=== PATIENT | male | born 1970 | race African-American/Black ===

== ENCOUNTER 2018-05-27 11:20 | Inpatient (IN) | payer OTHER ==
[2018-05-27 11:38] VITALS: BMI 24.3
--- NOTE | 2018-05-27 14:13 | HP ---
COWS - Scale Resting Pulse: 0= [place] 80 or Below Sweatin= Chills/Flushing Restless Observation: 1= Difficult to Sit Still Pupil Size: 1= Pupils >than Normal Bone or Joint Aches: 2= Severe Diffuse Aches Runny Nose/ Eye Tearin= Runny Nose/Eyes GI Upset > 30mins: 3= Vomiting/Diarrhea Tremor Observation: 1= Tremor [place], Not Seen Yawning Observation: 1= 1-2x During Session Anxiety or Irritability: 2=Irritable/Anxious Goose Flesh Skin: 0=Smooth Skin COWS Score: 14 Admission ROS S - HPI Chief Complaint: i need help to stop using heroin,cocaine Allergies/Adverse Reactions: Allergies Allergy/AdvReac Type Severity Reaction Status Date / Time No Known Drug Allergies Allergy Unknown Verified 05/27/18 14:25 lactose AdvReac Severe diarrhea Verified 05/27/18 14:28 NKDA Allergy Uncoded 05/27/18 13:58 lactose AdvReac Severe diarrhea Uncoded 05/27/18 13:58 History of Present Illness: this 48 years old male with heroin and cocaine dependence seeking detox, withdrawal symptom,last detox 12/01 in [place] nicotine dependence history of umbilical hernia at age 1 years anxiety,depression,insomnia weight loss longeat period of sobriety Exam Limitations: No Limitations - Ebola screening Have you traveled outside of the country in the last 21 days: No (N) Have you had contact with anyone from an Ebola affected area: No Have you been sick,other than usual withdrawal symptoms: No Do you have a fever: No - Review of Systems Constitutional: Loss of Appetite, Malaise, Night Sweats, Changes in sleep, Weakness, Unintentional Wgt. Loss EENT: reports: Nose Congestion Respiratory: reports: No Symptoms reported Cardiac: reports: No Symptoms Reported GI: reports: Diarrhea, Nausea, Abdominal cramping : reports: No Symptoms Reported Musculoskeletal: reports: Back Pain, Muscle Pain Integumentary: reports: Dryness, Other (abrasion of left middle finger) Neuro: reports: Headache, Tremors Endocrine: reports: No Symptoms Reported Hematology: reports: No Symptoms Reported Psychiatric: reports: Judgement Intact, Mood/Affect Appropiate, Orientated x3, Agitated (insomnia), Depressed Patient History - Patient Medical History Hx Anemia: No Hx Asthma: No Hx Chronic Obstructive Pulmonary Disease (COPD): No Hx Cancer: No Hx Cardiac Disorders: No Hx Congestive Heart Failure: No Hx Hypertension: No Hx Hypercholesterolemia: No Hx Pacemaker: No HX Cerebrovascular Accident: No Hx Seizures: No Hx Dementia: No Hx Diabetes: No Hx Gastrointestinal Disorders: No Hx Liver Disease: No Hx Genitourinary Disorders: No Hx Sexually Transmitted Disorders: No Hx Renal Disease (ESRD): No Hx Thyroid Disease: No Hx Human Immunodeficiency Virus (HIV): No (01/01 negative) Hx Hepatitis C: No Hx Depression: No Hx Suicide Attempt: No Hx Bipolar Disorder: No Hx Schizophrenia: No Other Medical History: no suicidal,no homicidal,abrasion of right hand - Patient Surgical History Past Surgical History: Yes Hx Abdominal Surgery: Yes (umbilical hernia at age of 1) - PPD History Previous Implant?: Yes Documented Results: Negative w/o proof Implanted On Prior [facility] Admission?: No PPD to be Administered?: Yes - Smoking Cessation Smoking history: Current every day smoker Have you smoked in the past 12 months: Yes Aproximately how many cigarettes per day: 10 Hx Chewing Tobacco Use: No Initiated information on smoking cessation: Yes 'Breaking Loose' booklet given: 05/27/18 - Substances Abused Heroin Route: Inhalation Frequency: Daily Amount used: 10 bags Age of first use: 40 Date of Last Use: 05/26/18 Cocaine Route: Inhalation Frequency: 3-6 times per week Amount used: $100 Age of first use: 25 Date of Last Use: 05/26/18 Suboxone Route: SL Frequency: 1-3 times last 30 days Amount used: 1 film (8-2 mg.) Age of first use: 47 Date of Last Use: 05/20/18 Family Disease History - Family Disease History Family History: Denies Admission Physical Exam [facility] - Vital Signs Vital Signs: Vital Signs - 24 hr 05/27/18 11:35 Temperature 98.2 F Pulse Rate 78 Respiratory 20 Rate Blood Pressure 119/75 - Physical General Appearance: Yes: Moderate Distress, Tremorous, Irritable, Sweating, Anxious HEENTM: Yes: Normal ENT Inspection, FERNIE, Pharynx Normal Respiratory: Yes: Within Normal Limits, Lungs Clear, Normal Breath Sounds Neck: Yes: Within Normal Limits, Supple, Trachea in good position Breast: Yes: Within Normal Limits Cardiology: Yes: Within Normal Limits, Regular Rhythm, Regular Rate, S1, S2 Abdominal: Yes: Within Normal Limits, Normal Bowel Sounds, Non Tender, Soft Genitourinary: Yes: Within Normal Limits Back: Yes: Muscle Spasm Musculoskeletal: Yes: Back pain, Muscle Pain Extremities: Yes: Within Normal Limits, Normal Range of Motion, Tremors Neurological: Yes: Within Normal Limits, compensation director II-XII NML intact, Fully Oriented, Alert, Motor Strength 5/5 Integumentary: Yes: Dry Lymphatic: Yes: Within Normal Limits - Diagnostic (1) Opioid dependence with withdrawal Current Visit: Yes Status: Acute (2) Cannabis dependence Current Visit: Yes Status: Chronic (3) Nicotine dependence Current Visit: Yes Status: Chronic (4) Anxiety and depression Current Visit: Yes Status: Acute (5) Insomnia Current Visit: Yes Status: Acute Cleared for Admission [facility] - Detox or Rehab [facility] Level of Care: Medically Managed Detox Regimen/Protocol: Methadone/Librium [facility] Breath Alcohol Content Breath Alcohol Content: 0 Urine Drug Screen - Results Drug Screen Negative: No Urine Drug Screen Results: THC-Marijuana, CARLY-Cocaine, OPI-Opiates, BUP-Suboxone
[2018-05-27] MEDS ORDERED: MAGNESIUM HYDROX 2400MG/30ML ORAL SUSPENSION 30 ML CUP PO PRN (14:30)
[2018-05-27] MEDS ORDERED: LOPERAMIDE HCL 2 MG CAPSULE PO PRN (14:30)
[2018-05-27] MEDS ORDERED: MENTHOL/PHENOL 1 EACH UD MM PRN (14:30)
[2018-05-27] MEDS ORDERED: ACETAMINOPHEN 325 MG TABLET (FP) PO PRN (14:30)
[2018-05-27] MEDS ORDERED: MAGNESIUM CITRATE 300 ML BOTTLE PO PRN (14:30)
[2018-05-27] MEDS ORDERED: IBUPROFEN 400 MG TABLET (FP) PO PRN (14:30)
[2018-05-27] MEDS ORDERED: MAG HYDROX/AL HYDROX/SIMETH 30 ML UNIT-DOSE CUP PO PRN (14:30)
[2018-05-27] MEDS ORDERED: METHADONE HCL 10 MG TABLET (FOR DETOX USE ONLY) PO ONE ×2 (15:00→23:00)
[2018-05-27] MEDS: P-EPHED 60MG/TRIPROLIDI 2.5MG TABLET PO PRN (15:31)
[2018-05-27] MEDS: diazePAM 5 MG TABLET PO PRN ×2 (15:38→22:06)
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
[2018-05-27 18:16] LABS: URINE APPEARANCE CLEAR; URINE BILIRUBIN NEGATIVE (<2.0 mg/dL); URINE COLOR AMBER; URINE GLUCOSE (UA) NEGATIVE (NEGATIVE); URINE KETONE 1+ (NEGATIVE); URINE LEUK ESTERASE NEGATIVE (NEGATIVE); URINE NITRITE NEGATIVE (NEGATIVE); URINE PROTEIN 1+ (NEGATIVE); URINE UROBILINOGEN 4.0 E.U/dl mg/dL (0.2-1.0)
[2018-05-27 18:37] LABS: CALCIUM OXALATE CRYSTALS FEW /hpf (NONE SEEN); EPI CELLS RARE /HPF (FEW); URINE MUCUS MANY
[2018-05-27] MEDS: guaiFENesin/D-METHORPHAN HB 10 ML UNIT-DOSE CUPS PO PRN (19:11)
[2018-05-27] MEDS ORDERED: MELATONIN 5 MG TABLETS PO PRN (22:00)
[2018-05-27] MEDS: THIAMINE HCL 100 MG TABLET (FP) PO SCH (22:06)
[2018-05-27] MEDS: QUEtiapine FUMARATE 50 MG TABLET PO SCH (22:06)
[2018-05-28] MEDS: guaiFENesin/D-METHORPHAN HB 10 ML UNIT-DOSE CUPS PO PRN ×2 (03:40→12:25)
[2018-05-28] MEDS ORDERED: METHADONE HCL 10 MG TABLET (FOR DETOX USE ONLY) PO ONE (10:00)
[2018-05-28 10:06] LABS: HEMATOCRIT 36.6 % (35.4-49); HEMOGLOBIN 12.2 GM/dL (11.7-16.9); MCH 28.8 pg (25.7-33.7); MCHC 33.2 g/dl (32.0-35.9); MEAN CELL VOLUME 86.7 fl (80-96); MEAN PLT VOLUME 10.6 fl (7.5-11.1); PLATELET COUNT 253 K/MM3 (134-434); RBC 4.23 M/mm3 (4.00-5.60); RDW 13.4 % (11.9-15.9); WHITE BLOOD COUNT 16.7 K/mm3 (4.0-10.0)
[2018-05-28 10:25] LABS: ALBUMIN 3.2 g/dl (3.4-5.0); ALK PHOS 76 U/L (45-117); ANION GAP 5 MMOL/L (8-16); BILIRUBIN,TOTAL 0.8 mg/dL (0.2-1); BLOOD UREA NITROGEN 11 mg/dL (7-18); CALCIUM 8.8 mg/dL (8.5-10.1); CHLORIDE 107 mmol/L (98-107); CO2 28 mmol/L (21-32); CREATININE 0.8 mg/dL (0.55-1.3); GLUCOSE,RANDOM 108 mg/dL (74-106); POTASSIUM 4.2 mmol/L (3.5-5.1); SGOT/AST 17 U/L (15-37); SGPT/ALT 23 U/L (13-61); SODIUM 140 mmol/L (136-145)
[2018-05-28] MEDS: PRENATAL VITAMINS W/ FOLIC ACID TABLET (FP) PO SCH (10:47)
[2018-05-28] MEDS: diazePAM 5 MG TABLET PO PRN ×3 (10:47→22:17)
[2018-05-28] MEDS: P-EPHED 60MG/TRIPROLIDI 2.5MG TABLET PO PRN ×2 (10:49→17:16)
[2018-05-28] MEDS ORDERED: FLU VACCINE QUAD 60 MCG/0.5 ML (MDV 18-19) IM ONE (12:00)
--- NOTE | 2018-05-28 12:04 | PN ---
[facility] COWS - Scale Resting Pulse: 0= [place] 80 or Below Sweatin= Chills/Flushing Restless Observation: 3= Extraneous Movement Pupil Size: 1= Pupils >than Normal Bone or Joint Aches: 2= Severe Diffuse Aches Runny Nose/ Eye Tearin= Runny Nose/Eyes GI Upset > 30mins: 2= Nausea/Diarrhea Tremor Observation of Outstretched Hands: 2= Slight Tremor Visible Yawning Observation: 1= 1-2x During Session Anxiety or Irritability: 2=Irritable/Anxious Goose Flesh Skin: 0=Smooth Skin COWS Score: 16 [facility] Progress Note (SOAP) Subjective: Sweating, chills, body aches, legs hurting, interrupted sleep. Patient c/o sore throat x 1 week and brownish phlegm with cough. Patient didn't report sxs to functional tester typewriters but told RN. Objective: 05/28/18 12:00 Last Vital Signs Temp Pulse Resp BP Pulse Ox 96.7 F L 74 18 117/70 05/28/18 10:28 05/28/18 10:28 05/28/18 10:28 05/28/18 10:28 Laboratory Tests 05/27/18 05/28/18 05/28/18 15:45 06:00 06:00 WBC 16.7 H RBC 4.23 Hgb 12.2 Hct 36.6 MCV 86.7 MCH 28.8 MCHC 33.2 RDW 13.4 Plt Count 253 MPV 10.6 Sodium 140 Potassium 4.2 Chloride 107 Carbon Dioxide 28 Anion Gap 5 L BUN 11 Creatinine 0.8 Creat Clearance w eGFR > 60 Random Glucose 108 H Calcium 8.8 Total Bilirubin 0.8 AST 17 ALT 23 Alkaline Phosphatase 76 Total Protein 7.0 Albumin 3.2 L Urine Color Pauline Urine Appearance Clear Urine pH 5.0 Ur Specific [place] 1.029 Urine Protein 1+ H Urine Glucose (UA) Negative Urine Ketones 1+ H Urine Blood Negative Urine Nitrite Negative Urine Bilirubin Negative Urine Urobilinogen 4.0 e.u/dl Ur Leukocyte Esterase Negative Urine WBC (Auto) 4 Urine RBC (Auto) 5 Ur Epithelial Cells Rare Calcium Oxalate Crystal Few Urine Mucus Many RPR Titer 05/28/18 06:00 WBC RBC Hgb Hct MCV MCH MCHC RDW Plt Count MPV Sodium Potassium Chloride Carbon Dioxide Anion Gap BUN Creatinine Creat Clearance w eGFR Random Glucose Calcium Total Bilirubin AST ALT Alkaline Phosphatase Total Protein Albumin Urine Color Urine Appearance Urine pH Ur Specific [place] Urine Protein Urine Glucose (UA) Urine Ketones Urine Blood Urine Nitrite Urine Bilirubin Urine Urobilinogen Ur Leukocyte Esterase Urine WBC (Auto) Urine RBC (Auto) Ur Epithelial Cells Calcium Oxalate Crystal Urine Mucus RPR Titer Nonreactive Labs reviewed: noted with leukocytosis and abnormal UA Assessment: 05/28/18 12:04 Withdrawal sxs Noted with leukocytosis and abnormal UA Plan: Continue detox Leukocytosis: asymptomatic, most likely r/t bronchitis due to chronic nicotine dependence, start Z [place], encouraged PO hydration, continue tylenol prn and robitussin cough dm, repeat CBC. Consider chest xray if no improvement within 24 -48 hours. Abnormal UA: encouraged PO water intake, repeat UA
[2018-05-28] MEDS ORDERED: AZITHROMYCIN 250 MG TABLET PO ONE (12:45)
[2018-05-28] MEDS: hydrOXYzine PAMOATE 25 MG CAPSULE (FP) PO PRN (17:14)
[2018-05-28] MEDS: QUEtiapine FUMARATE 50 MG TABLET PO SCH (22:17)
[2018-05-28] MEDS: THIAMINE HCL 100 MG TABLET (FP) PO SCH (22:17)
[2018-05-29] MEDS ORDERED: METHADONE HCL 5 MG TABLET (FOR DETOX USE ONLY) PO ONE (10:00)
[2018-05-29 10:59] LABS: BASO % 0.2 % (0-2.0); EOS % 3.6 % (0-4.5); HEMATOCRIT 34.3 % (35.4-49); HEMOGLOBIN 11.5 GM/dL (11.7-16.9); LYMPH % 27.2 % (8-40); MCH 29.4 pg (25.7-33.7); MCHC 33.6 g/dl (32.0-35.9); MEAN CELL VOLUME 87.6 fl (80-96); MEAN PLT VOLUME 10.3 fl (7.5-11.1); MONO % 7.1 % (3.8-10.2); NEUT % 61.9 % (42.8-82.8); PLATELET COUNT 238 K/MM3 (134-434); RBC 3.92 M/mm3 (4.00-5.60); RDW 13.2 % (11.9-15.9); WHITE BLOOD COUNT 10.5 K/mm3 (4.0-10.0)
[2018-05-29] MEDS: diazePAM 5 MG TABLET PO PRN ×3 (10:59→22:13)
[2018-05-29] MEDS: AZITHROMYCIN 250 MG TABLET PO SCH (10:59)
[2018-05-29] MEDS: P-EPHED 60MG/TRIPROLIDI 2.5MG TABLET PO PRN ×2 (11:01→18:13)
[2018-05-29] MEDS: PRENATAL VITAMINS W/ FOLIC ACID TABLET (FP) PO SCH (11:01)
[2018-05-29] MEDS ORDERED: CYCLOBENZAPRINE HCL 10 MG TABLET (FP) PO ONE (13:30)
[2018-05-29] MEDS ORDERED: cloNIDine HCL 0.1 MG TABLET PO ONE (13:30)
--- NOTE | 2018-05-29 15:03 | PN ---
[facility] COWS - Scale Resting Pulse: 1= [place] 81-100 Sweatin= Chills/Flushing Restless Observation: 1= Difficult to Sit Still Pupil Size: 1= Pupils >than Normal Bone or Joint Aches: 2= Severe Diffuse Aches Runny Nose/ Eye Tearin= Runny Nose/Eyes GI Upset > 30mins: 2= Nausea/Diarrhea Tremor Observation of Outstretched Hands: 2= Slight Tremor Visible Yawning Observation: 1= 1-2x During Session Anxiety or Irritability: 2=Irritable/Anxious Goose Flesh Skin: 0=Smooth Skin COWS Score: 15 S Progress Note (SOAP) Subjective: alert,irritable,anxious,interrupted sleep,pain in the body and back,tremor Objective: 05/29/18 15:01 Vital Signs Temperature 98.0 F 05/29/18 11:12 Pulse Rate 90 05/29/18 11:12 Respiratory Rate 16 05/29/18 11:12 Blood Pressure 125/78 05/29/18 11:12 O2 Sat by Pulse Oximetry (%) 05/29/18 15:02 Laboratory Last Values WBC 10.5 K/mm3 (4.0-10.0) H 05/29/18 08:00 RBC 3.92 M/mm3 (4.00-5.60) L 05/29/18 08:00 Hgb 11.5 GM/dL (11.7-16.9) L 05/29/18 08:00 Hct 34.3 % (35.4-49) L 05/29/18 08:00 MCV 87.6 fl (80-96) 05/29/18 08:00 MCH 29.4 pg (25.7-33.7) 05/29/18 08:00 MCHC 33.6 g/dl (32.0-35.9) 05/29/18 08:00 RDW 13.2 % (11.9-15.9) 05/29/18 08:00 Plt Count 238 K/MM3 (134-434) 05/29/18 08:00 MPV 10.3 fl (7.5-11.1) 05/29/18 08:00 Absolute Neuts (auto) 6.5 K/mm3 (1.5-8.0) 05/29/18 08:00 Neutrophils % 61.9 % (42.8-82.8) 05/29/18 08:00 Lymphocytes % 27.2 % (8-40) 05/29/18 08:00 Monocytes % 7.1 % (3.8-10.2) 05/29/18 08:00 Eosinophils % 3.6 % (0-4.5) 05/29/18 08:00 Basophils % 0.2 % (0-2.0) 05/29/18 08:00 Nucleated RBC % 0 % (0-0) 05/29/18 08:00 Sodium 140 mmol/L (136-145) 05/28/18 06:00 Potassium 4.2 mmol/L (3.5-5.1) 05/28/18 06:00 Chloride 107 mmol/L (98-107) 05/28/18 06:00 Carbon Dioxide 28 mmol/L (21-32) 05/28/18 06:00 Anion Gap 5 MMOL/L (8-16) L 05/28/18 06:00 BUN 11 mg/dL (7-18) 05/28/18 06:00 Creatinine 0.8 mg/dL (0.55-1.3) 05/28/18 06:00 Creat Clearance w eGFR > 60 (>60) 05/28/18 06:00 Random Glucose 108 mg/dL (74-106) H 05/28/18 06:00 Calcium 8.8 mg/dL (8.5-10.1) 05/28/18 06:00 Total Bilirubin 0.8 mg/dL (0.2-1) 05/28/18 06:00 AST 17 U/L (15-37) 05/28/18 06:00 ALT 23 U/L (13-61) 05/28/18 06:00 Alkaline Phosphatase 76 U/L (45-117) 05/28/18 06:00 Total Protein 7.0 g/dl (6.4-8.2) 05/28/18 06:00 Albumin 3.2 g/dl (3.4-5.0) L 05/28/18 06:00 Urine Color Paul[place] 05/27/18 15:45 Urine Appearance Clear 05/27/18 15:45 Urine pH 5.0 (5.0-8.0) 05/27/18 15:45 Ur Specific [place] 1.029 (1.010-1.035) 05/27/18 15:45 Urine Protein 1+ (NEGATIVE) H 05/27/18 15:45 Urine Glucose (UA) Negative (NEGATIVE) 05/27/18 15:45 Urine Ketones 1+ (NEGATIVE) H 05/27/18 15:45 Urine Blood Negative (NEGATIVE) 05/27/18 15:45 Urine Nitrite Negative (NEGATIVE) 05/27/18 15:45 Urine Bilirubin Negative (<2.0 mg/dL) 05/27/18 15:45 Urine Urobilinogen 4.0 e.u/dl mg/dL (0.2-1.0) 05/27/18 15:45 Ur Leukocyte Esterase Negative (NEGATIVE) 05/27/18 15:45 Urine WBC (Auto) 4 /hpf (3-5) 05/27/18 15:45 Urine RBC (Auto) 5 /hpf (0-3) 05/27/18 15:45 Ur Epithelial Cells Rare /HPF (FEW) 05/27/18 15:45 Calcium Oxalate Crystal Few /hpf (NONE SEEN) 05/27/18 15:45 Urine Mucus Many 05/27/18 15:45 RPR Titer Nonreactive (NONREACTIVE) 05/28/18 06:00 Assessment: 05/29/18 15:02 withdrawal symptom Plan: continue detox
[2018-05-29] MEDS: cloNIDine HCL 0.1 MG TABLET PO SCH (22:13)
[2018-05-29] MEDS: THIAMINE HCL 100 MG TABLET (FP) PO SCH (22:13)
[2018-05-29] MEDS: QUEtiapine FUMARATE 50 MG TABLET PO SCH (22:13)
[2018-05-29] MEDS: CYCLOBENZAPRINE HCL 10 MG TABLET (FP) PO PRN (22:13)
[2018-05-30] MEDS ORDERED: METHADONE HCL 5 MG TABLET (FOR DETOX USE ONLY) PO ONE (10:00)
[2018-05-30] MEDS: PRENATAL VITAMINS W/ FOLIC ACID TABLET (FP) PO SCH (10:08)
[2018-05-30] MEDS: cloNIDine HCL 0.1 MG TABLET PO SCH ×2 (10:08→22:07)
[2018-05-30] MEDS: AZITHROMYCIN 250 MG TABLET PO SCH (10:08)
[2018-05-30] MEDS: diazePAM 5 MG TABLET PO PRN ×2 (10:08→13:48)
--- NOTE | 2018-05-30 15:23 | PN ---
S Progress Note (SOAP) Subjective: Sweating, muscle ache, diarrhea x 2 Objective: 05/30/18 15:20 Last Vital Signs Temp Pulse Resp BP Pulse Ox 96.5 F L 94 H 18 102/71 05/30/18 14:08 05/30/18 14:08 05/30/18 14:08 05/30/18 14:08 Laboratory Tests 05/27/18 05/28/18 05/28/18 15:45 06:00 06:00 WBC 16.7 H RBC 4.23 Hgb 12.2 Hct 36.6 MCV 86.7 MCH 28.8 MCHC 33.2 RDW 13.4 Plt Count 253 MPV 10.6 Absolute Neuts (auto) Neutrophils % Lymphocytes % Monocytes % Eosinophils % Basophils % Nucleated RBC % Sodium 140 Potassium 4.2 Chloride 107 Carbon Dioxide 28 Anion Gap 5 L BUN 11 Creatinine 0.8 Creat Clearance w eGFR > 60 Random Glucose 108 H Calcium 8.8 Total Bilirubin 0.8 AST 17 ALT 23 Alkaline Phosphatase 76 Total Protein 7.0 Albumin 3.2 L Urine Color Pauline Urine Appearance Clear Urine pH 5.0 Ur Specific [place] 1.029 Urine Protein 1+ H Urine Glucose (UA) Negative Urine Ketones 1+ H Urine Blood Negative Urine Nitrite Negative Urine Bilirubin Negative Urine Urobilinogen 4.0 e.u/dl Ur Leukocyte Esterase Negative Urine WBC (Auto) 4 Urine RBC (Auto) 5 Ur Epithelial Cells Rare Calcium Oxalate Crystal Few Urine Mucus Many RPR Titer 05/28/18 05/29/18 06:00 08:00 WBC 10.5 H RBC 3.92 L Hgb 11.5 L Hct 34.3 L MCV 87.6 MCH 29.4 MCHC 33.6 RDW 13.2 Plt Count 238 MPV 10.3 Absolute Neuts (auto) 6.5 Neutrophils % 61.9 Lymphocytes % 27.2 Monocytes % 7.1 Eosinophils % 3.6 Basophils % 0.2 Nucleated RBC % 0 Sodium Potassium Chloride Carbon Dioxide Anion Gap BUN Creatinine Creat Clearance w eGFR Random Glucose Calcium Total Bilirubin AST ALT Alkaline Phosphatase Total Protein Albumin Urine Color Urine Appearance Urine pH Ur Specific [place] Urine Protein Urine Glucose (UA) Urine Ketones Urine Blood Urine Nitrite Urine Bilirubin Urine Urobilinogen Ur Leukocyte Esterase Urine WBC (Auto) Urine RBC (Auto) Ur Epithelial Cells Calcium Oxalate Crystal Urine Mucus RPR Titer Nonreactive Labs reviewed: abnormal UA (ordered for repeat, was not done), leukocytosis ( resolving, pt on z barbara) Assessment: 05/30/18 15:21 Withdrawal sxs Noted with abnormal UA Plan: Continue detox Abnormal UA: encouraged PO water intake, repeat UA
[2018-05-30 17:13] LABS: URINE APPEARANCE SLCLOUDY; URINE BILIRUBIN NEGATIVE (<2.0 mg/dL); URINE GLUCOSE (UA) NEGATIVE (NEGATIVE); URINE KETONE NEGATIVE (NEGATIVE); URINE LEUK ESTERASE NEGATIVE (NEGATIVE); URINE NITRITE NEGATIVE (NEGATIVE); URINE PROTEIN NEGATIVE (NEGATIVE); URINE UROBILINOGEN NEGATIVE mg/dL (0.2-1.0)
[2018-05-30 17:14] LABS: URINE COLOR YELLOW
[2018-05-30] MEDS: THIAMINE HCL 100 MG TABLET (FP) PO SCH (22:07)
[2018-05-30] MEDS: QUEtiapine FUMARATE 50 MG TABLET PO SCH (22:07)
[2018-05-30] MEDS: CYCLOBENZAPRINE HCL 10 MG TABLET (FP) PO PRN (22:07)
[2018-05-31] MEDS ORDERED: IBUPROFEN 600 MG TABLET (FP) PO PRN (09:44)
--- NOTE | 2018-05-31 09:45 | PN ---
[facility] Progress Note Note: Vital Signs Temperature 97.1 F L 05/31/18 09:16 Pulse Rate 86 05/31/18 09:16 Respiratory Rate 18 05/31/18 09:16 Blood Pressure 121/70 05/31/18 09:16 O2 Sat by Pulse Oximetry (%) Laboratory Last Values WBC 10.5 K/mm3 (4.0-10.0) H 05/29/18 08:00 RBC 3.92 M/mm3 (4.00-5.60) L 05/29/18 08:00 Hgb 11.5 GM/dL (11.7-16.9) L 05/29/18 08:00 Hct 34.3 % (35.4-49) L 05/29/18 08:00 MCV 87.6 fl (80-96) 05/29/18 08:00 MCH 29.4 pg (25.7-33.7) 05/29/18 08:00 MCHC 33.6 g/dl (32.0-35.9) 05/29/18 08:00 RDW 13.2 % (11.9-15.9) 05/29/18 08:00 Plt Count 238 K/MM3 (134-434) 05/29/18 08:00 MPV 10.3 fl (7.5-11.1) 05/29/18 08:00 Absolute Neuts (auto) 6.5 K/mm3 (1.5-8.0) 05/29/18 08:00 Neutrophils % 61.9 % (42.8-82.8) 05/29/18 08:00 Lymphocytes % 27.2 % (8-40) 05/29/18 08:00 Monocytes % 7.1 % (3.8-10.2) 05/29/18 08:00 Eosinophils % 3.6 % (0-4.5) 05/29/18 08:00 Basophils % 0.2 % (0-2.0) 05/29/18 08:00 Nucleated RBC % 0 % (0-0) 05/29/18 08:00 Sodium 140 mmol/L (136-145) 05/28/18 06:00 Potassium 4.2 mmol/L (3.5-5.1) 05/28/18 06:00 Chloride 107 mmol/L (98-107) 05/28/18 06:00 Carbon Dioxide 28 mmol/L (21-32) 05/28/18 06:00 Anion Gap 5 MMOL/L (8-16) L 05/28/18 06:00 BUN 11 mg/dL (7-18) 05/28/18 06:00 Creatinine 0.8 mg/dL (0.55-1.3) 05/28/18 06:00 Creat Clearance w eGFR > 60 (>60) 05/28/18 06:00 Random Glucose 108 mg/dL (74-106) H 05/28/18 06:00 Calcium 8.8 mg/dL (8.5-10.1) 05/28/18 06:00 Total Bilirubin 0.8 mg/dL (0.2-1) 05/28/18 06:00 AST 17 U/L (15-37) 05/28/18 06:00 ALT 23 U/L (13-61) 05/28/18 06:00 Alkaline Phosphatase 76 U/L (45-117) 05/28/18 06:00 Total Protein 7.0 g/dl (6.4-8.2) 05/28/18 06:00 Albumin 3.2 g/dl (3.4-5.0) L 05/28/18 06:00 Urine Color Yellow 05/30/18 15:37 Urine Appearance Slcloudy 05/30/18 15:37 Urine pH 5.0 (5.0-8.0) 05/30/18 15:37 Ur Specific [place] 1.026 (1.010-1.035) 05/30/18 15:37 Urine Protein Negative (NEGATIVE) 05/30/18 15:37 Urine Glucose (UA) Negative (NEGATIVE) 05/30/18 15:37 Urine Ketones Negative (NEGATIVE) 05/30/18 15:37 Urine Blood Negative (NEGATIVE) 05/30/18 15:37 Urine Nitrite Negative (NEGATIVE) 05/30/18 15:37 Urine Bilirubin Negative (<2.0 mg/dL) 05/30/18 15:37 Urine Urobilinogen Negative mg/dL (0.2-1.0) 05/30/18 15:37 Ur Leukocyte Esterase Negative (NEGATIVE) 05/30/18 15:37 Urine WBC (Auto) 4 /hpf (3-5) 05/27/18 15:45 Urine RBC (Auto) 5 /hpf (0-3) 05/27/18 15:45 Ur Epithelial Cells Rare /HPF (FEW) 05/27/18 15:45 Calcium Oxalate Crystal Few /hpf (NONE SEEN) 05/27/18 15:45 Urine Mucus Many 05/27/18 15:45 RPR Titer Nonreactive (NONREACTIVE) 05/28/18 06:00 c/o of back pain, body aches Aox3 no distress no adventitious breath sounds full ROM ambulating in the unit withdrawal sx increase fluids continue to monitor
[2018-05-31] MEDS ORDERED: METHADONE HCL 10 MG TABLET (FOR DETOX USE ONLY) PO ONE (10:00)
[2018-05-31] MEDS: PRENATAL VITAMINS W/ FOLIC ACID TABLET (FP) PO SCH (10:42)
[2018-05-31] MEDS: cloNIDine HCL 0.1 MG TABLET PO SCH ×2 (10:42→22:58)
[2018-05-31] MEDS: LIDOCAINE 5% TOPICAL PATCH TP SCH (10:42)
[2018-05-31] MEDS: AZITHROMYCIN 250 MG TABLET PO SCH (10:42)
[2018-05-31] MEDS ORDERED: LIDOCAINE PATCH REMOVAL MC SCH (22:00)
[2018-05-31] MEDS: THIAMINE HCL 100 MG TABLET (FP) PO SCH (22:57)
[2018-05-31] MEDS: QUEtiapine FUMARATE 50 MG TABLET PO SCH (22:58)
[2018-05-31] MEDS: hydrOXYzine PAMOATE 25 MG CAPSULE (FP) PO PRN (23:00)
[2018-06-01] MEDS ORDERED: METHADONE HCL 5 MG TABLET (FOR DETOX USE ONLY) PO ONE (06:00)
[2018-06-01 09:59] VITALS: BP 104/65; PULSE 87; TEMP 97.4
[2018-06-01] MEDS: PRENATAL VITAMINS W/ FOLIC ACID TABLET (FP) PO SCH (10:21)
[2018-06-01] MEDS: AZITHROMYCIN 250 MG TABLET PO SCH (10:22)
[2018-06-01] MEDS: cloNIDine HCL 0.1 MG TABLET PO SCH (10:22)
[2018-06-01] MEDS: hydrOXYzine PAMOATE 25 MG CAPSULE (FP) PO PRN (10:25)
[2018-06-01] MEDS: LIDOCAINE 5% TOPICAL PATCH TP SCH (10:25)
--- NOTE | 2018-06-01 11:41 | DS ---
[facility] Discharge Summary Admission Date: 05/27/18 Discharge Date: 06/01/18 - History Present History: Opioid Dependence - Physical Exam Results Vital Signs: Vital Signs Temperature 97.4 F L 06/01/18 09:58 Pulse Rate 87 06/01/18 09:58 Respiratory Rate 16 06/01/18 09:58 Blood Pressure 104/65 06/01/18 09:58 O2 Sat by Pulse Oximetry (%) Pertinent Admission Physical Exam Findings: PATIENT TOLERATED DETOX REGIMEN WITHOUT ADVERSE EVENT. ALERT AND ORIENTED X 3. SKIN WARM AND DRY, AMB AD MANUEL. EXT FULL ROM. DENIES SI/HI. PATIENT ACCEPTED REHAB REFERRAL TO [facility]. PATIENT ENCOURAGED TO COMPLETE REHAB TO PREVENT RELAPSE. PATIENT GIVEN D/C INSTRUCTIONS BY STAFF. - Treatment Hospital Course: Detox Protocol Followed, Detoxed Safely, Responded well, Discharged Condition Good, Rehab Referral Accepted Patient has Accepted a Rehab Referral to: [facility] - Medication Discharge Medications: Ambulatory Orders NK [No Known Home Medication] 05/27/18 - AMA Did Patient Leave Against Medical Advice: No
== END 2018-06-01 12:22 | disposition other institution (70) | DRG 773 ==
LOC: YASAS 11:20 → Y3N 14:20
PROC: HZ2ZZZZ Detoxification Services for Substance Abuse Treatment (ICD-10-PCS; principal; 2018-05-27)
DX: F11.23 Opioid dependence with withdrawal (principal); F12.20 Cannabis dependence, uncomplicated; F17.210 Nicotine dependence, cigarettes, uncomplicated; F41.8 Other specified anxiety disorders; F19.24 Other psychoactive substance dependence with psychoactive substance-induced mood disorder; F19.282 Other psychoactive substance dependence with psychoactive substance-induced sleep disorder; D72.829 Elevated white blood cell count, unspecified; R82.90 Unspecified abnormal findings in urine; G47.00 Insomnia, unspecified; Z91.011 Allergy to milk products
CPT/HCPCS: 36415; 80053; 81003; 81015; 85025; 85027; 86593; 90688; G0008; J0735

== ENCOUNTER 2018-06-01 12:27 | Inpatient (IN) | payer OTHER ==
[2018-06-01 12:50] VITALS: BMI 28.1
[2018-06-01] MEDS ORDERED: guaiFENesin/D-METHORPHAN HB 10 ML UNIT-DOSE CUPS PO PRN (14:05)
[2018-06-01] MEDS ORDERED: MAG HYDROX/AL HYDROX/SIMETH 30 ML UNIT-DOSE CUP PO PRN (14:05)
[2018-06-01] MEDS ORDERED: MAGNESIUM CITRATE 300 ML BOTTLE PO PRN (14:05)
[2018-06-01] MEDS ORDERED: MENTHOL/PHENOL 1 EACH UD MM PRN (14:05)
[2018-06-01] MEDS ORDERED: P-EPHED 60MG/TRIPROLIDI 2.5MG TABLET PO PRN (14:05)
[2018-06-01] MEDS ORDERED: LOPERAMIDE HCL 2 MG CAPSULE PO PRN (14:05)
[2018-06-01] MEDS ORDERED: NICOTINE POLACRILEX 2 MG GUM BUC PRN (14:05)
[2018-06-01] MEDS ORDERED: MAGNESIUM HYDROX 2400MG/30ML ORAL SUSPENSION 30 ML CUP PO PRN (14:05)
[2018-06-01] MEDS ORDERED: ACETAMINOPHEN 325 MG TABLET (FP) PO PRN (14:05)
--- NOTE | 2018-06-01 14:08 | HP ---
[facility] Rehab Assess/Revision - Admission History Admitted to Rehab from: [facility] [place] Date of Admission to Rehab: 06/01/18 - Vital signs Vital Signs: Vital Signs Period Temp Pulse Resp BP Sys/Jones Pulse Ox Last 24 Hr 98.3 F 98 18 125/78 - Findings Detox History & Physical reviewed: Yes Concur with findings: Yes Inpatient Rehab Admission - Initial Determination Are CD services needed?: Yes Free of communicable disease: Yes Not in need of hospitalization: Yes - Rehab Admission Criteria Patient is meeting Inpatient Rehab admission criteria:: Yes
[2018-06-01] MEDS ORDERED: CYCLOBENZAPRINE HCL 10 MG TABLET (FP) PO PRN (16:00)
[2018-06-01] MEDS: THIAMINE HCL 100 MG TABLET (FP) PO SCH (21:54)
[2018-06-01] MEDS: QUEtiapine FUMARATE 50 MG TABLET PO SCH (21:54)
[2018-06-01] MEDS: cloNIDine HCL 0.1 MG TABLET PO SCH (21:54)
[2018-06-01] MEDS: hydrOXYzine PAMOATE 50 MG CAPSULE (FP) PO PRN (21:55)
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
[2018-06-02] MEDS ORDERED: AZITHROMYCIN 250 MG TABLET PO SCH (10:00)
[2018-06-02] MEDS ORDERED: PRENATAL VITAMINS W/ FOLIC ACID TABLET (FP) PO SCH (10:00)
[2018-06-02] MEDS: cloNIDine HCL 0.1 MG TABLET PO SCH ×2 (10:27→21:29)
[2018-06-02] MEDS: NICOTINE 14 MG/24 HOURS TOPICAL PATCH TD SCH (10:27)
[2018-06-02] MEDS: LIDOCAINE 5% TOPICAL PATCH TP SCH (10:27)
[2018-06-02] MEDS: SERTRALINE HCL 50 MG TABLET (FP) PO SCH (11:59)
[2018-06-02] MEDS: CYCLOBENZAPRINE HCL 10 MG TABLET (FP) PO SCH ×2 (13:59→21:29)
[2018-06-02] MEDS: hydrOXYzine PAMOATE 50 MG CAPSULE (FP) PO PRN (16:48)
[2018-06-02] MEDS: THIAMINE HCL 100 MG TABLET (FP) PO SCH (21:29)
[2018-06-02] MEDS: QUEtiapine FUMARATE 50 MG TABLET PO SCH ×2 (21:29→21:31)
[2018-06-02] MEDS: LIDOCAINE PATCH REMOVAL MC SCH (21:30)
[2018-06-03] MEDS: CYCLOBENZAPRINE HCL 10 MG TABLET (FP) PO SCH ×3 (06:45→21:38)
[2018-06-03] MEDS: LIDOCAINE 5% TOPICAL PATCH TP SCH (09:34)
[2018-06-03] MEDS: NICOTINE 14 MG/24 HOURS TOPICAL PATCH TD SCH (09:34)
[2018-06-03] MEDS: cloNIDine HCL 0.1 MG TABLET PO SCH ×2 (09:35→21:38)
[2018-06-03] MEDS: SERTRALINE HCL 50 MG TABLET (FP) PO SCH (09:35)
[2018-06-03] MEDS ORDERED: ONDANSETRON *ODT* 4 MG TABLET SL PRN (15:10)
--- NOTE | 2018-06-03 15:13 | PN ---
[facility] Progress Note Note: C/O BODY ACHES, SWEATS/CHILL, NAUSEA, AND DIARRHEA. PT CAME FROM DETOX FLOOR ON THE 06/01/18. ALERT O X3. Vital Signs 06/03/18 10:00 Pulse Rate 95 H Blood Pressure 103/68 PLAN;CONTINUE WITH CLONIDINE AND FLEXERIL DIRECTED ZOFRAN PRN IMODIUM PRN MOTRIN PRN
[2018-06-03] MEDS: THIAMINE HCL 100 MG TABLET (FP) PO SCH (21:38)
[2018-06-03] MEDS: hydrOXYzine PAMOATE 50 MG CAPSULE (FP) PO PRN (21:38)
[2018-06-03] MEDS: QUEtiapine FUMARATE 50 MG TABLET PO SCH (21:38)
[2018-06-03] MEDS: LIDOCAINE PATCH REMOVAL MC SCH (21:39)
[2018-06-04] MEDS: CYCLOBENZAPRINE HCL 10 MG TABLET (FP) PO SCH ×3 (06:29→21:57)
[2018-06-04] MEDS: NICOTINE 14 MG/24 HOURS TOPICAL PATCH TD SCH (09:37)
[2018-06-04] MEDS: cloNIDine HCL 0.1 MG TABLET PO SCH ×2 (09:37→21:57)
[2018-06-04] MEDS: SERTRALINE HCL 50 MG TABLET (FP) PO SCH (09:37)
[2018-06-04] MEDS: LIDOCAINE 5% TOPICAL PATCH TP SCH (09:38)
[2018-06-04] MEDS: hydrOXYzine PAMOATE 50 MG CAPSULE (FP) PO PRN ×2 (09:38→21:57)
--- NOTE | 2018-06-04 15:52 | PN ---
[facility] Progress Note Note: PT C/O OPIOD W/S AND DISCOMFORT. REQUESTING SUBOXONE AND WANTS TO FOLLOW UP WITH A PROGRAM ON DISCHARGE. SPOKE TO PT'S COUNSELOR ABOUT STARTING HIM ON 2MG TODAY AND OVER THE WEEKEND. PLAN:SUBOXONE 2MG/0,5 MG SL X 3 DOSES. REEVALUATE PT FOR INCREASED DOSE.
[2018-06-04] MEDS ORDERED: BUPRENORPHINE/NALOXONE 2 MG/0.5 MG FILM PACKET SL SCH (16:00)
[2018-06-04] MEDS: QUEtiapine FUMARATE 50 MG TABLET PO SCH (21:57)
[2018-06-04] MEDS: THIAMINE HCL 100 MG TABLET (FP) PO SCH (21:57)
[2018-06-04] MEDS: LIDOCAINE PATCH REMOVAL MC SCH (21:58)
[2018-06-05] MEDS: CYCLOBENZAPRINE HCL 10 MG TABLET (FP) PO SCH ×3 (06:47→21:37)
[2018-06-05] MEDS: LIDOCAINE 5% TOPICAL PATCH TP SCH (09:45)
[2018-06-05] MEDS: cloNIDine HCL 0.1 MG TABLET PO SCH ×2 (09:45→21:37)
[2018-06-05] MEDS: SERTRALINE HCL 50 MG TABLET (FP) PO SCH (09:45)
[2018-06-05] MEDS: NICOTINE 14 MG/24 HOURS TOPICAL PATCH TD SCH (09:46)
[2018-06-05] MEDS: QUEtiapine FUMARATE 50 MG TABLET PO SCH (21:37)
[2018-06-05] MEDS: THIAMINE HCL 100 MG TABLET (FP) PO SCH (21:37)
[2018-06-05] MEDS: LIDOCAINE PATCH REMOVAL MC SCH (21:38)
[2018-06-06] MEDS: CYCLOBENZAPRINE HCL 10 MG TABLET (FP) PO SCH ×3 (06:33→21:08)
[2018-06-06] MEDS: LIDOCAINE 5% TOPICAL PATCH TP SCH (09:43)
[2018-06-06] MEDS: cloNIDine HCL 0.1 MG TABLET PO SCH ×2 (09:43→21:08)
[2018-06-06] MEDS: SERTRALINE HCL 50 MG TABLET (FP) PO SCH (09:43)
[2018-06-06] MEDS: NICOTINE 14 MG/24 HOURS TOPICAL PATCH TD SCH (09:43)
[2018-06-06] MEDS: THIAMINE HCL 100 MG TABLET (FP) PO SCH (21:08)
[2018-06-06] MEDS: QUEtiapine FUMARATE 50 MG TABLET PO SCH (21:08)
[2018-06-06] MEDS: LIDOCAINE PATCH REMOVAL MC SCH (21:19)
[2018-06-07] MEDS: CYCLOBENZAPRINE HCL 10 MG TABLET (FP) PO SCH ×3 (06:07→21:40)
[2018-06-07] MEDS: cloNIDine HCL 0.1 MG TABLET PO SCH ×2 (10:00→21:40)
[2018-06-07] MEDS: SERTRALINE HCL 50 MG TABLET (FP) PO SCH (10:00)
[2018-06-07] MEDS: NICOTINE 14 MG/24 HOURS TOPICAL PATCH TD SCH (10:01)
[2018-06-07] MEDS: LIDOCAINE 5% TOPICAL PATCH TP SCH (10:01)
--- NOTE | 2018-06-07 14:18 | PN ---
BHS COWS - Scale Resting Pulse: 0= [place] 80 or Below Sweatin= Chills/Flushing Restless Observation: 3= Extraneous Movement (twitching) Pupil Size: 0= Normal to Room Light Bone or Joint Aches: 4=Acute Joint/Muscle Pain Runny Nose/ Eye Tearin= Runny Nose/Eyes (and nasal congestion) GI Upset > 30mins: 1= Stomach Cramp Tremor Observation of Outstretched Hands: 2= Slight Tremor Visible Yawning Observation: 0= None Anxiety or Irritability: 1=Feels Anxious/Irritable Goose Flesh Skin: 0=Smooth Skin COWS Score: 14 BHS Progress Note (SOAP) Subjective: PT WAS SEEN TODAY BY THIS INSURANCE VERIFY REP AND DR. BERKOWITZ,CLIENT ACCOUNT ASSISTANT FOR PATIENT C/ O WITHDRAWAL SX AND REQUEST FOR MAT WITH SUBOXONE. Objective: 06/07/18 14:19 Vital Signs 06/07/18 06/07/18 06:33 10:00 Temperature 97.8 F Pulse Rate 68 78 Respiratory 18 Rate Blood Pressure 117/79 118/81 Assessment: 06/07/18 14:19 WITHDRAWAL SX MAT Plan: MAT WITH SUBOXONE
[2018-06-07] MEDS ORDERED: BUPRENORPHINE/NALOXONE 2 MG/0.5 MG FILM PACKET SL SCH (14:30)
[2018-06-07] MEDS: QUEtiapine FUMARATE 50 MG TABLET PO SCH (21:40)
[2018-06-07] MEDS: THIAMINE HCL 100 MG TABLET (FP) PO SCH (21:40)
[2018-06-07] MEDS: LIDOCAINE PATCH REMOVAL MC SCH (22:01)
[2018-06-08] MEDS: CYCLOBENZAPRINE HCL 10 MG TABLET (FP) PO SCH ×3 (06:38→21:20)
[2018-06-08] MEDS ORDERED: PSYLLIUM 5.85 GM PACKET PO SCH (10:00)
[2018-06-08] MEDS: LIDOCAINE 5% TOPICAL PATCH TP SCH (10:01)
[2018-06-08] MEDS: cloNIDine HCL 0.1 MG TABLET PO SCH ×2 (10:01→21:20)
[2018-06-08] MEDS: SERTRALINE HCL 50 MG TABLET (FP) PO SCH (10:01)
[2018-06-08] MEDS: NICOTINE 14 MG/24 HOURS TOPICAL PATCH TD SCH (10:01)
--- NOTE | 2018-06-08 10:08 | PN ---
BHS COWS - Scale Resting Pulse: 1= VT 81-100 Sweatin= Chills/Flushing Restless Observation: 3= Extraneous Movement Pupil Size: 0= Normal to Room Light Bone or Joint Aches: 4=Acute Joint/Muscle Pain Runny Nose/ Eye Tearin= Nasal Congestion GI Upset > 30mins: 1= Stomach Cramp Tremor Observation of Outstretched Hands: 1= Tremor [place], Not Seen Yawning Observation: 0= None Anxiety or Irritability: 1=Feels Anxious/Irritable Goose Flesh Skin: 0=Smooth Skin COWS Score: 13 S Progress Note (SOAP) Subjective: PT STILL C/O DISCOMFORT AND REQUESTING FOR AN INCREASE IN SUBOXONE DOSE. PT IS ALERT O X 3. OOB AND NOT LAYING IN BED PREVIOUS DAYS. Objective: 06/08/18 10:11 Vital Signs 06/08/18 06/08/18 06/08/18 03:30 06:55 09:42 Temperature 97.5 F L Pulse Rate 85 95 H Respiratory 16 18 18 Rate Blood Pressure 111/68 96/62 Assessment: 06/08/18 10:11 SUBOXONE RE-EVALUATION FOLLOW UP. Plan: INCREASE SUBOXONE TO 6 MG TODAY RE-EVALUATE PT IN THE MORNING.
[2018-06-08] MEDS: BUPRENORPHINE/NALOXONE 2 MG/0.5 MG FILM PACKET SL SCH (10:49)
[2018-06-08] MEDS: THIAMINE HCL 100 MG TABLET (FP) PO SCH (21:20)
[2018-06-08] MEDS: QUEtiapine FUMARATE 50 MG TABLET PO SCH (21:20)
[2018-06-08] MEDS: LIDOCAINE PATCH REMOVAL MC SCH (21:21)
[2018-06-08] MEDS ORDERED: DOCUSATE SODIUM 100 MG CAPSULE (FP) PO SCH (22:00)
[2018-06-09] MEDS: CYCLOBENZAPRINE HCL 10 MG TABLET (FP) PO SCH ×3 (06:01→21:07)
[2018-06-09] MEDS: NICOTINE 14 MG/24 HOURS TOPICAL PATCH TD SCH (09:44)
[2018-06-09] MEDS: SERTRALINE HCL 50 MG TABLET (FP) PO SCH (09:44)
[2018-06-09] MEDS: BUPRENORPHINE/NALOXONE 2 MG/0.5 MG FILM PACKET SL SCH (09:44)
[2018-06-09] MEDS: LIDOCAINE 5% TOPICAL PATCH TP SCH (09:44)
[2018-06-09] MEDS: cloNIDine HCL 0.1 MG TABLET PO SCH ×2 (09:44→21:08)
--- NOTE | 2018-06-09 11:54 | PN ---
[facility] Progress Note Note: Addiction Medicine Consultation 45 minutes This is a 48 year old gentleman with a long history of opioid use disorder requesting Suboxone for assistance with withdrawal symptoms. The patient is currently in rehab after a stay in detox. Substance Use History Cocaine: first in 20's, 2x a month, last was remote MJA: sporadically Denies ETOH and benzo, PCP opiids: Given percocet in his 40s for back pain, then progressed to heroin, [place] in the last 2 years. Currently 10 bags a day. Was given 5mg of Methadone in detox 2 days ago. Tobacco: 1/2 PPD Has taken Suboxone 8mg strips on the street for withdrawal symptoms PMedHx: none PSurghx: None NKDA Psych h/o: Depression: was admitted to [facility] for 4 days ( recently) for "anger, depression." Given Risperdal but never followed up taking the medication. Denies currently feeling depressed. Social H/O: lives in [facility], was a software database architect, [employer], single with 2 kids COWS: Moderate withdrawal Tremulous, c/o stomach pain, chills, anxiety Mood: sad, affect: congruent, full A/P: 48 year old gentleman with opioid use disorder s/p detox. With PAWS and moderate withdrawal. Last opiid 2 days ago, methadone 5mg. 1) Start Suboxone 4mg and titrate up to cravings and withdrawal symptoms. 2) Encourage participation in all rehab groups and counseling 3) Will f/u with [facility] outpatient for Suboxone 4) Will continue to follow
[2018-06-09] MEDS: QUEtiapine FUMARATE 50 MG TABLET PO SCH (21:07)
[2018-06-09] MEDS: THIAMINE HCL 100 MG TABLET (FP) PO SCH (21:07)
[2018-06-09] MEDS: MELATONIN 5 MG TABLETS PO PRN (21:07)
[2018-06-09] MEDS: LIDOCAINE PATCH REMOVAL MC SCH (21:08)
[2018-06-10] MEDS: CYCLOBENZAPRINE HCL 10 MG TABLET (FP) PO SCH ×3 (06:14→21:33)
[2018-06-10] MEDS: cloNIDine HCL 0.1 MG TABLET PO SCH ×2 (09:53→21:33)
[2018-06-10] MEDS: LIDOCAINE 5% TOPICAL PATCH TP SCH (09:53)
[2018-06-10] MEDS: PRENATAL VITAMINS W/ FOLIC ACID TABLET (FP) PO SCH (09:54)
[2018-06-10] MEDS: NICOTINE 14 MG/24 HOURS TOPICAL PATCH TD SCH (09:54)
[2018-06-10] MEDS: BUPRENORPHINE/NALOXONE 2 MG/0.5 MG FILM PACKET SL SCH (09:55)
[2018-06-10] MEDS: SERTRALINE HCL 50 MG TABLET (FP) PO SCH (09:55)
--- NOTE | 2018-06-10 15:14 | PN ---
S Progress Note Note: PT C/O CURRENT DOSE OF SUBOXONE NOT ENOUGH AND WANTS INCREASE. ALERT O X 3. NAD. PT REPORTS HE IS NOW ABLE TO GO TO GROUPS AND ALSO LEADING GROUPS. Vital Signs - 24 hr 06/09/18 06/09/18 06/10/18 20:56 20:58 00:30 Temperature Pulse Rate 60 93 H Respiratory 18 18 16 Rate Blood Pressure 136/86 123/79 06/10/18 06/10/18 06/10/18 03:30 06:49 09:30 Temperature 97.5 F L Pulse Rate 80 95 H Respiratory 16 18 18 Rate Blood Pressure 120/73 112/68 NAD SUBOXONE 2 MG/0.5 MG SL NOW WILL INCREASE TO SUBOXONE 8 MG/2 MG SL DAILY
[2018-06-10] MEDS ORDERED: BUPRENORPHINE/NALOXONE 2 MG/0.5 MG FILM PACKET SL ONE (16:30)
[2018-06-10] MEDS: MELATONIN 5 MG TABLETS PO PRN (21:33)
[2018-06-10] MEDS: THIAMINE HCL 100 MG TABLET (FP) PO SCH (21:33)
[2018-06-10] MEDS: QUEtiapine FUMARATE 50 MG TABLET PO SCH (21:33)
[2018-06-10] MEDS: LIDOCAINE PATCH REMOVAL MC SCH (22:40)
[2018-06-11] MEDS: CYCLOBENZAPRINE HCL 10 MG TABLET (FP) PO SCH ×3 (06:54→21:16)
[2018-06-11] MEDS: BUPRENORPHINE/NALOXONE 2 MG/0.5 MG FILM PACKET SL SCH (09:43)
[2018-06-11] MEDS: PRENATAL VITAMINS W/ FOLIC ACID TABLET (FP) PO SCH (09:44)
[2018-06-11] MEDS: SERTRALINE HCL 50 MG TABLET (FP) PO SCH (09:44)
[2018-06-11] MEDS: LIDOCAINE 5% TOPICAL PATCH TP SCH (09:44)
[2018-06-11] MEDS: cloNIDine HCL 0.1 MG TABLET PO SCH ×2 (09:44→21:16)
[2018-06-11] MEDS: NICOTINE 14 MG/24 HOURS TOPICAL PATCH TD SCH (09:44)
[2018-06-11] MEDS: MELATONIN 5 MG TABLETS PO PRN (21:16)
[2018-06-11] MEDS: QUEtiapine FUMARATE 50 MG TABLET PO SCH (21:16)
[2018-06-11] MEDS: THIAMINE HCL 100 MG TABLET (FP) PO SCH (21:16)
[2018-06-11] MEDS: LIDOCAINE PATCH REMOVAL MC SCH (21:17)
[2018-06-12] MEDS: CYCLOBENZAPRINE HCL 10 MG TABLET (FP) PO SCH ×3 (05:52→21:21)
[2018-06-12] MEDS: SERTRALINE HCL 50 MG TABLET (FP) PO SCH (10:00)
[2018-06-12] MEDS: PRENATAL VITAMINS W/ FOLIC ACID TABLET (FP) PO SCH (10:00)
[2018-06-12] MEDS: cloNIDine HCL 0.1 MG TABLET PO SCH ×2 (10:00→21:21)
[2018-06-12] MEDS: BUPRENORPHINE/NALOXONE 2 MG/0.5 MG FILM PACKET SL SCH (10:00)
[2018-06-12] MEDS: LIDOCAINE 5% TOPICAL PATCH TP SCH (10:01)
[2018-06-12] MEDS: NICOTINE 14 MG/24 HOURS TOPICAL PATCH TD SCH (10:01)
[2018-06-12] MEDS: THIAMINE HCL 100 MG TABLET (FP) PO SCH (21:21)
[2018-06-12] MEDS: MELATONIN 5 MG TABLETS PO PRN (21:21)
[2018-06-12] MEDS: QUEtiapine FUMARATE 50 MG TABLET PO SCH (21:21)
[2018-06-12] MEDS: LIDOCAINE PATCH REMOVAL MC SCH (21:22)
[2018-06-13] MEDS: CYCLOBENZAPRINE HCL 10 MG TABLET (FP) PO SCH ×3 (05:54→21:24)
[2018-06-13] MEDS: BUPRENORPHINE/NALOXONE 2 MG/0.5 MG FILM PACKET SL SCH (09:49)
[2018-06-13] MEDS: cloNIDine HCL 0.1 MG TABLET PO SCH ×2 (09:49→21:24)
[2018-06-13] MEDS: NICOTINE 14 MG/24 HOURS TOPICAL PATCH TD SCH (09:49)
[2018-06-13] MEDS: SERTRALINE HCL 50 MG TABLET (FP) PO SCH (09:49)
[2018-06-13] MEDS: PRENATAL VITAMINS W/ FOLIC ACID TABLET (FP) PO SCH (09:49)
[2018-06-13] MEDS: LIDOCAINE 5% TOPICAL PATCH TP SCH (09:51)
[2018-06-13] MEDS: QUEtiapine FUMARATE 50 MG TABLET PO SCH (21:24)
[2018-06-13] MEDS: THIAMINE HCL 100 MG TABLET (FP) PO SCH (21:24)
[2018-06-13] MEDS: MELATONIN 5 MG TABLETS PO PRN (21:24)
[2018-06-13] MEDS: LIDOCAINE PATCH REMOVAL MC SCH (21:25)
[2018-06-14] MEDS: CYCLOBENZAPRINE HCL 10 MG TABLET (FP) PO SCH ×3 (07:11→21:19)
[2018-06-14] MEDS: SERTRALINE HCL 50 MG TABLET (FP) PO SCH (09:57)
[2018-06-14] MEDS: cloNIDine HCL 0.1 MG TABLET PO SCH ×2 (09:57→21:19)
[2018-06-14] MEDS: PRENATAL VITAMINS W/ FOLIC ACID TABLET (FP) PO SCH (09:57)
[2018-06-14] MEDS: NICOTINE 14 MG/24 HOURS TOPICAL PATCH TD SCH (09:58)
[2018-06-14] MEDS: LIDOCAINE 5% TOPICAL PATCH TP SCH (09:58)
[2018-06-14] MEDS: BUPRENORPHINE/NALOXONE 8 MG/2 MG FILM PACKET SL SCH (10:00)
--- NOTE | 2018-06-14 10:27 | PN ---
B[facility] Progress Note Note: RE-EVALUATED TODAY. PT REPORTS ADDED DOSE OF SUBOXONE AT BEDTIME DUE TO FEELINGS OF WITHDRAWAL SX AND CRAVINGS STATING HE WAS USING A LOT ON THE STREETS AND HAS TAKEN 8MG TWICE A DAY IN THE PAST. ALERT O X 3. Vital Signs - 24 hr 06/13/18 06/13/18 06/14/18 14:05 22:00 03:30 Temperature Pulse Rate Respiratory 18 Rate Blood Pressure 121/76 121/76 06/14/18 06/14/18 06:28 09:03 Temperature 97.4 F L Pulse Rate 80 86 Respiratory 18 18 Rate Blood Pressure 112/71 117/69 NAD PLAN:SUBOXONE 8MG/2MG SL AT 10 AM ADD SUBOXONE 2 MG/0.5 MG AT HS STARTING TONIGHT.
[2018-06-14] MEDS: QUEtiapine FUMARATE 50 MG TABLET PO SCH (21:18)
[2018-06-14] MEDS: THIAMINE HCL 100 MG TABLET (FP) PO SCH (21:18)
[2018-06-14] MEDS: LIDOCAINE PATCH REMOVAL MC SCH (21:19)
[2018-06-14] MEDS ORDERED: BUPRENORPHINE/NALOXONE 2 MG/0.5 MG FILM PACKET SL SCH (22:00)
[2018-06-15] MEDS: CYCLOBENZAPRINE HCL 10 MG TABLET (FP) PO SCH ×3 (07:06→21:18)
[2018-06-15] MEDS: SERTRALINE HCL 50 MG TABLET (FP) PO SCH (09:44)
[2018-06-15] MEDS: LIDOCAINE 5% TOPICAL PATCH TP SCH (09:44)
[2018-06-15] MEDS: PRENATAL VITAMINS W/ FOLIC ACID TABLET (FP) PO SCH (09:44)
[2018-06-15] MEDS: cloNIDine HCL 0.1 MG TABLET PO SCH ×2 (09:44→21:18)
[2018-06-15] MEDS: BUPRENORPHINE/NALOXONE 8 MG/2 MG FILM PACKET SL SCH (09:44)
[2018-06-15] MEDS: NICOTINE 14 MG/24 HOURS TOPICAL PATCH TD SCH (09:44)
[2018-06-15] MEDS: BENZOCAINE 20 % GEL TUBE MM SCH ×3 (14:20→23:22)
[2018-06-15] MEDS: METHYL SALICYLATE/MENTHOL OINT 30 GM TUBE TP SCH ×2 (14:51→21:19)
[2018-06-15] MEDS ORDERED: PT OWN MED DRAWER 7, Y5N ONE (14:52)
[2018-06-15] MEDS: BUPRENORPHINE/NALOXONE 2 MG/0.5 MG FILM PACKET SL SCH ×2 (20:18→22:25)
[2018-06-15] MEDS: QUEtiapine FUMARATE 50 MG TABLET PO SCH (21:18)
[2018-06-15] MEDS: THIAMINE HCL 100 MG TABLET (FP) PO SCH (21:18)
[2018-06-16] MEDS: CYCLOBENZAPRINE HCL 10 MG TABLET (FP) PO SCH ×3 (06:22→21:44)
[2018-06-16] MEDS: METHYL SALICYLATE/MENTHOL OINT 30 GM TUBE TP SCH ×3 (06:22→21:45)
[2018-06-16] MEDS: BENZOCAINE 20 % GEL TUBE MM SCH ×2 (06:23→11:48)
[2018-06-16] MEDS: cloNIDine HCL 0.1 MG TABLET PO SCH ×2 (09:45→21:44)
[2018-06-16] MEDS: PRENATAL VITAMINS W/ FOLIC ACID TABLET (FP) PO SCH (09:45)
[2018-06-16] MEDS: SERTRALINE HCL 50 MG TABLET (FP) PO SCH (09:45)
[2018-06-16] MEDS: NICOTINE 14 MG/24 HOURS TOPICAL PATCH TD SCH (09:45)
[2018-06-16] MEDS: BUPRENORPHINE/NALOXONE 8 MG/2 MG FILM PACKET SL SCH (09:45)
[2018-06-16] MEDS: QUEtiapine FUMARATE 50 MG TABLET PO SCH (21:44)
[2018-06-16] MEDS: THIAMINE HCL 100 MG TABLET (FP) PO SCH (21:44)
[2018-06-16] MEDS: BUPRENORPHINE/NALOXONE 2 MG/0.5 MG FILM PACKET SL SCH (21:45)
[2018-06-16] MEDS: IBUPROFEN 400 MG TABLET (FP) PO PRN (21:57)
[2018-06-17] MEDS: CYCLOBENZAPRINE HCL 10 MG TABLET (FP) PO SCH ×3 (06:19→21:32)
[2018-06-17] MEDS: METHYL SALICYLATE/MENTHOL OINT 30 GM TUBE TP SCH ×3 (06:37→21:32)
[2018-06-17] MEDS ORDERED: BENZOCAINE 20 % GEL TUBE MM PRN (07:16)
[2018-06-17] MEDS: NICOTINE 14 MG/24 HOURS TOPICAL PATCH TD SCH (09:38)
[2018-06-17] MEDS: BUPRENORPHINE/NALOXONE 8 MG/2 MG FILM PACKET SL SCH ×2 (09:38→18:20)
[2018-06-17] MEDS: SERTRALINE HCL 50 MG TABLET (FP) PO SCH (09:38)
[2018-06-17] MEDS: cloNIDine HCL 0.1 MG TABLET PO SCH (09:38)
[2018-06-17] MEDS: PRENATAL VITAMINS W/ FOLIC ACID TABLET (FP) PO SCH (09:38)
[2018-06-17] MEDS ORDERED: COLLOIDAL OATMEAL 1 BAR EACH TP PRN (10:05)
--- NOTE | 2018-06-17 11:27 | PN ---
BHS Progress Note Note: PT DOING BETTER BUT REQUESTING AN INCREASE ON SUBOXONE DUE TO C/O JITTERINESS, ANXIETY, ESPECIALLY TOWARDS THE END OF THE DAY. OOB PARTICIPATING IN ACTIVITIES. Vital Signs 06/17/18 06/17/18 06:40 09:30 Temperature 97.6 F Pulse Rate 79 89 Respiratory 18 18 Rate Blood Pressure 104/68 120/68 NAD PLAN:SUBOXONE 8 MG SL BID DIRECTED.
[2018-06-17] MEDS: IBUPROFEN 400 MG TABLET (FP) PO PRN (18:19)
[2018-06-17] MEDS: QUEtiapine FUMARATE 50 MG TABLET PO SCH (21:32)
[2018-06-17] MEDS: THIAMINE HCL 100 MG TABLET (FP) PO SCH (21:32)
[2018-06-18] MEDS: METHYL SALICYLATE/MENTHOL OINT 30 GM TUBE TP SCH ×3 (06:14→21:45)
[2018-06-18] MEDS: CYCLOBENZAPRINE HCL 10 MG TABLET (FP) PO SCH ×3 (06:14→21:42)
[2018-06-18] MEDS: SERTRALINE HCL 50 MG TABLET (FP) PO SCH (10:09)
[2018-06-18] MEDS: BUPRENORPHINE/NALOXONE 8 MG/2 MG FILM PACKET SL SCH ×2 (10:09→18:07)
[2018-06-18] MEDS: PRENATAL VITAMINS W/ FOLIC ACID TABLET (FP) PO SCH (10:09)
[2018-06-18] MEDS: NICOTINE 14 MG/24 HOURS TOPICAL PATCH TD SCH (10:10)
[2018-06-18] MEDS: cloNIDine HCL 0.1 MG TABLET PO PRN (10:11)
[2018-06-18] MEDS: IBUPROFEN 400 MG TABLET (FP) PO PRN ×2 (10:12→18:06)
[2018-06-18] MEDS: THIAMINE HCL 100 MG TABLET (FP) PO SCH (21:42)
[2018-06-18] MEDS: MELATONIN 5 MG TABLETS PO PRN (21:42)
[2018-06-18] MEDS: QUEtiapine FUMARATE 50 MG TABLET PO SCH (21:42)
[2018-06-19] MEDS ORDERED: PT OWN MED DRAWER 7, Y5N ONE (02:37)
[2018-06-19] MEDS: CYCLOBENZAPRINE HCL 10 MG TABLET (FP) PO SCH ×3 (07:10→21:14)
[2018-06-19] MEDS: METHYL SALICYLATE/MENTHOL OINT 30 GM TUBE TP SCH ×3 (07:10→22:02)
[2018-06-19] MEDS: PRENATAL VITAMINS W/ FOLIC ACID TABLET (FP) PO SCH (09:48)
[2018-06-19] MEDS: SERTRALINE HCL 50 MG TABLET (FP) PO SCH (09:48)
[2018-06-19] MEDS: BUPRENORPHINE/NALOXONE 8 MG/2 MG FILM PACKET SL SCH ×2 (09:48→17:39)
[2018-06-19] MEDS: NICOTINE 14 MG/24 HOURS TOPICAL PATCH TD SCH (09:49)
[2018-06-19] MEDS: cloNIDine HCL 0.1 MG TABLET PO PRN (14:55)
[2018-06-19] MEDS: IBUPROFEN 400 MG TABLET (FP) PO PRN (17:40)
[2018-06-19] MEDS: QUEtiapine FUMARATE 50 MG TABLET PO SCH (21:14)
[2018-06-19] MEDS: THIAMINE HCL 100 MG TABLET (FP) PO SCH (21:14)
[2018-06-20] MEDS ORDERED: PT OWN MED DRAWER 7, Y5N ONE ×3 (04:10→19:22)
[2018-06-20] MEDS: CYCLOBENZAPRINE HCL 10 MG TABLET (FP) PO SCH ×3 (06:38→21:27)
[2018-06-20] MEDS: cloNIDine HCL 0.1 MG TABLET PO PRN ×2 (06:40→17:50)
[2018-06-20] MEDS: IBUPROFEN 400 MG TABLET (FP) PO PRN ×2 (06:40→17:48)
[2018-06-20] MEDS: METHYL SALICYLATE/MENTHOL OINT 30 GM TUBE TP SCH ×3 (07:04→22:18)
[2018-06-20] MEDS: NICOTINE 14 MG/24 HOURS TOPICAL PATCH TD SCH (09:53)
[2018-06-20] MEDS: PRENATAL VITAMINS W/ FOLIC ACID TABLET (FP) PO SCH (09:53)
[2018-06-20] MEDS: SERTRALINE HCL 50 MG TABLET (FP) PO SCH (09:53)
[2018-06-20] MEDS: BUPRENORPHINE/NALOXONE 8 MG/2 MG FILM PACKET SL SCH ×2 (09:53→17:47)
[2018-06-20] MEDS: THIAMINE HCL 100 MG TABLET (FP) PO SCH (21:27)
[2018-06-20] MEDS: QUEtiapine FUMARATE 50 MG TABLET PO SCH (21:27)
[2018-06-21] MEDS: METHYL SALICYLATE/MENTHOL OINT 30 GM TUBE TP SCH ×3 (07:02→22:22)
[2018-06-21] MEDS: CYCLOBENZAPRINE HCL 10 MG TABLET (FP) PO SCH ×3 (07:02→21:13)
[2018-06-21] MEDS: cloNIDine HCL 0.1 MG TABLET PO PRN (07:02)
[2018-06-21] MEDS: PRENATAL VITAMINS W/ FOLIC ACID TABLET (FP) PO SCH (10:13)
[2018-06-21] MEDS: BUPRENORPHINE/NALOXONE 8 MG/2 MG FILM PACKET SL SCH (10:13)
[2018-06-21] MEDS: SERTRALINE HCL 50 MG TABLET (FP) PO SCH (10:13)
[2018-06-21] MEDS: NICOTINE 14 MG/24 HOURS TOPICAL PATCH TD SCH (10:14)
[2018-06-21] MEDS: IBUPROFEN 400 MG TABLET (FP) PO PRN (11:35)
[2018-06-21] MEDS ORDERED: BUPRENORPHINE/NALOXONE 8 MG/2 MG FILM PACKET SL SCH (18:00)
[2018-06-21] MEDS: THIAMINE HCL 100 MG TABLET (FP) PO SCH (21:13)
[2018-06-21] MEDS: MELATONIN 5 MG TABLETS PO PRN (21:13)
[2018-06-21] MEDS: QUEtiapine FUMARATE 50 MG TABLET PO SCH (21:13)
[2018-06-22] MEDS: CYCLOBENZAPRINE HCL 10 MG TABLET (FP) PO SCH ×3 (06:01→21:37)
[2018-06-22] MEDS: METHYL SALICYLATE/MENTHOL OINT 30 GM TUBE TP SCH ×3 (06:02→21:38)
[2018-06-22] MEDS: BUPRENORPHINE/NALOXONE 8 MG/2 MG FILM PACKET SL SCH ×3 (10:02→21:37)
[2018-06-22] MEDS: SERTRALINE HCL 50 MG TABLET (FP) PO SCH (10:02)
[2018-06-22] MEDS: PRENATAL VITAMINS W/ FOLIC ACID TABLET (FP) PO SCH (10:02)
[2018-06-22] MEDS: NICOTINE 14 MG/24 HOURS TOPICAL PATCH TD SCH (10:02)
[2018-06-22] MEDS: cloNIDine HCL 0.1 MG TABLET PO PRN ×2 (10:03→21:37)
[2018-06-22] MEDS: IBUPROFEN 400 MG TABLET (FP) PO PRN (10:03)
--- NOTE | 2018-06-22 13:59 | PN ---
[facility] Progress Note Note: PT WANTS C/O WITHDRAWAL SX/CRAVINGS AND WANTS SUBOXONE INCREASED TO TID. ALERT O X 3. Vital Signs 06/22/18 06/22/18 06:39 09:26 Temperature 97.3 F L Pulse Rate 87 92 H Respiratory 18 Rate Blood Pressure 117/71 128/71 PLAN:ADJUST MEDS TO SUBOXONE 8 MG/2MG 1 FILM SL TID.
[2018-06-22] MEDS: BACITRACIN 0.9 GM PACKET TP SCH ×2 (14:07→21:37)
[2018-06-22] MEDS: THIAMINE HCL 100 MG TABLET (FP) PO SCH (21:37)
[2018-06-22] MEDS: QUEtiapine FUMARATE 50 MG TABLET PO SCH (21:37)
[2018-06-23] MEDS: CYCLOBENZAPRINE HCL 10 MG TABLET (FP) PO SCH ×3 (06:46→21:20)
[2018-06-23] MEDS: IBUPROFEN 400 MG TABLET (FP) PO PRN ×2 (06:47→21:22)
[2018-06-23] MEDS: METHYL SALICYLATE/MENTHOL OINT 30 GM TUBE TP SCH ×3 (06:48→21:20)
[2018-06-23] MEDS: SERTRALINE HCL 50 MG TABLET (FP) PO SCH (09:48)
[2018-06-23] MEDS: PRENATAL VITAMINS W/ FOLIC ACID TABLET (FP) PO SCH (09:48)
[2018-06-23] MEDS: BACITRACIN 0.9 GM PACKET TP SCH ×2 (09:48→21:20)
[2018-06-23] MEDS: BUPRENORPHINE/NALOXONE 8 MG/2 MG FILM PACKET SL SCH ×3 (09:48→21:20)
[2018-06-23] MEDS: cloNIDine HCL 0.1 MG TABLET PO PRN ×2 (09:48→21:22)
[2018-06-23] MEDS: NICOTINE 14 MG/24 HOURS TOPICAL PATCH TD SCH (09:49)
[2018-06-23] MEDS: THIAMINE HCL 100 MG TABLET (FP) PO SCH (21:19)
[2018-06-23] MEDS: QUEtiapine FUMARATE 50 MG TABLET PO SCH (21:20)
[2018-06-24] MEDS: CYCLOBENZAPRINE HCL 10 MG TABLET (FP) PO SCH ×3 (06:50→21:45)
[2018-06-24] MEDS: METHYL SALICYLATE/MENTHOL OINT 30 GM TUBE TP SCH ×3 (06:51→21:46)
[2018-06-24] MEDS: NICOTINE 14 MG/24 HOURS TOPICAL PATCH TD SCH (09:54)
[2018-06-24] MEDS: SERTRALINE HCL 50 MG TABLET (FP) PO SCH (09:54)
[2018-06-24] MEDS: BUPRENORPHINE/NALOXONE 8 MG/2 MG FILM PACKET SL SCH ×3 (09:54→21:45)
[2018-06-24] MEDS: BACITRACIN 0.9 GM PACKET TP SCH ×2 (09:54→21:44)
[2018-06-24] MEDS: cloNIDine HCL 0.1 MG TABLET PO PRN ×2 (09:54→21:45)
[2018-06-24] MEDS: PRENATAL VITAMINS W/ FOLIC ACID TABLET (FP) PO SCH (09:54)
[2018-06-24] MEDS: IBUPROFEN 400 MG TABLET (FP) PO PRN (14:20)
[2018-06-24] MEDS: THIAMINE HCL 100 MG TABLET (FP) PO SCH (21:45)
[2018-06-24] MEDS: QUEtiapine FUMARATE 50 MG TABLET PO SCH (21:46)
[2018-06-25] MEDS: CYCLOBENZAPRINE HCL 10 MG TABLET (FP) PO SCH ×3 (05:43→21:58)
[2018-06-25] MEDS: METHYL SALICYLATE/MENTHOL OINT 30 GM TUBE TP SCH ×3 (05:43→22:00)
[2018-06-25] MEDS: NICOTINE 14 MG/24 HOURS TOPICAL PATCH TD SCH (10:00)
[2018-06-25] MEDS: PRENATAL VITAMINS W/ FOLIC ACID TABLET (FP) PO SCH (10:00)
[2018-06-25] MEDS: SERTRALINE HCL 50 MG TABLET (FP) PO SCH (10:00)
[2018-06-25] MEDS: BUPRENORPHINE/NALOXONE 8 MG/2 MG FILM PACKET SL SCH ×3 (10:00→21:58)
[2018-06-25] MEDS: BACITRACIN 0.9 GM PACKET TP SCH ×2 (10:00→21:57)
[2018-06-25] MEDS: cloNIDine HCL 0.1 MG TABLET PO PRN ×2 (10:01→21:58)
[2018-06-25] MEDS: QUEtiapine FUMARATE 50 MG TABLET PO SCH (21:58)
[2018-06-25] MEDS: hydrOXYzine PAMOATE 50 MG CAPSULE (FP) PO PRN (21:58)
[2018-06-25] MEDS: THIAMINE HCL 100 MG TABLET (FP) PO SCH (21:58)
[2018-06-26] MEDS: CYCLOBENZAPRINE HCL 10 MG TABLET (FP) PO SCH ×3 (06:23→21:32)
[2018-06-26] MEDS: METHYL SALICYLATE/MENTHOL OINT 30 GM TUBE TP SCH ×3 (06:26→22:38)
[2018-06-26] MEDS: IBUPROFEN 400 MG TABLET (FP) PO PRN ×2 (10:05→21:32)
[2018-06-26] MEDS: cloNIDine HCL 0.1 MG TABLET PO PRN ×2 (10:05→21:32)
[2018-06-26] MEDS: PRENATAL VITAMINS W/ FOLIC ACID TABLET (FP) PO SCH (10:05)
[2018-06-26] MEDS: NICOTINE 14 MG/24 HOURS TOPICAL PATCH TD SCH (10:05)
[2018-06-26] MEDS: BUPRENORPHINE/NALOXONE 8 MG/2 MG FILM PACKET SL SCH ×3 (10:05→21:32)
[2018-06-26] MEDS: BACITRACIN 0.9 GM PACKET TP SCH ×2 (10:05→21:32)
[2018-06-26] MEDS: SERTRALINE HCL 50 MG TABLET (FP) PO SCH (10:05)
[2018-06-26] MEDS: QUEtiapine FUMARATE 50 MG TABLET PO SCH (21:31)
[2018-06-26] MEDS: THIAMINE HCL 100 MG TABLET (FP) PO SCH (21:31)
[2018-06-27] MEDS: CYCLOBENZAPRINE HCL 10 MG TABLET (FP) PO SCH ×3 (06:40→21:28)
[2018-06-27] MEDS: METHYL SALICYLATE/MENTHOL OINT 30 GM TUBE TP SCH ×3 (06:41→22:26)
[2018-06-27] MEDS: BUPRENORPHINE/NALOXONE 8 MG/2 MG FILM PACKET SL SCH ×3 (10:08→21:29)
[2018-06-27] MEDS: BACITRACIN 0.9 GM PACKET TP SCH ×2 (10:08→21:28)
[2018-06-27] MEDS: SERTRALINE HCL 50 MG TABLET (FP) PO SCH (10:08)
[2018-06-27] MEDS: PRENATAL VITAMINS W/ FOLIC ACID TABLET (FP) PO SCH (10:08)
[2018-06-27] MEDS: NICOTINE 14 MG/24 HOURS TOPICAL PATCH TD SCH (10:09)
[2018-06-27] MEDS: IBUPROFEN 400 MG TABLET (FP) PO PRN ×2 (10:09→21:28)
[2018-06-27] MEDS: THIAMINE HCL 100 MG TABLET (FP) PO SCH (21:28)
[2018-06-27] MEDS: QUEtiapine FUMARATE 50 MG TABLET PO SCH (21:29)
[2018-06-27] MEDS: cloNIDine HCL 0.1 MG TABLET PO PRN (21:29)
[2018-06-28] MEDS: CYCLOBENZAPRINE HCL 10 MG TABLET (FP) PO SCH ×3 (06:32→21:32)
[2018-06-28] MEDS: METHYL SALICYLATE/MENTHOL OINT 30 GM TUBE TP SCH ×3 (06:33→21:33)
[2018-06-28] MEDS: PRENATAL VITAMINS W/ FOLIC ACID TABLET (FP) PO SCH (09:44)
[2018-06-28] MEDS: BUPRENORPHINE/NALOXONE 8 MG/2 MG FILM PACKET SL SCH ×3 (09:44→21:32)
[2018-06-28] MEDS: BACITRACIN 0.9 GM PACKET TP SCH ×2 (09:44→21:32)
[2018-06-28] MEDS: cloNIDine HCL 0.1 MG TABLET PO PRN (09:44)
[2018-06-28] MEDS: NICOTINE 14 MG/24 HOURS TOPICAL PATCH TD SCH (09:44)
[2018-06-28] MEDS: SERTRALINE HCL 50 MG TABLET (FP) PO SCH (09:44)
[2018-06-28] MEDS: IBUPROFEN 400 MG TABLET (FP) PO PRN ×2 (09:45→21:31)
[2018-06-28] MEDS: QUEtiapine FUMARATE 50 MG TABLET PO SCH (21:32)
[2018-06-28] MEDS: THIAMINE HCL 100 MG TABLET (FP) PO SCH (21:32)
--- NOTE | 2018-06-29 05:58 | PN ---
Psychiatric Progress Note Vital Signs: Vital Signs Period Temp Pulse Resp BP Sys/Jones Pulse Ox Last 24 Hr 97.4 F 82-90 - 112-119/70-76 Date of Session: 06/29/18 Chief Complaint:: Discharge Note HPI: Patient addressing Opioid ansd Cocaine Dependence comorbid with Nicotine Dependence, MDD, recurrent episode, moderate, Substance-Induced Anxiety Disorder and Substance-Induced Sleep Disorder Current Medications: Active Medications Generic Name Dose Route Start Last Admin Trade Name Freq PRN Reason Stop Dose Admin Acetaminophen 650 mg 06/01/18 14:05 Tylenol - PO Q4H PRN FEVER Al Hydroxide/Mg Hydroxide 30 ml 06/01/18 14:05 06/25/18 14:17 Mylanta Oral Suspension - PO 30 ml Q6H PRN Administration DYSPEPSIA Bacitracin 0.9 gm 06/22/18 12:15 06/28/18 21:32 Bacitracin - TP 0.9 gm BID ASIF Administration Benzocaine 1 applic 06/17/18 07:16 Anbesol - MM Q6H PRN ORAL PAIN/MOUTH SORES Buprenorphine/Naloxone 1 each 06/22/18 14:00 06/28/18 21:32 Suboxone 8mg/2mg Sl Film - SL 06/29/18 13:59 1 each TID@1000,1400,2200 ASIF Administration Clonidine 0.1 mg 06/17/18 10:07 06/28/18 09:44 Catapres - PO 0.1 mg BID PRN Administration WITHDRAWAL(CONT SUBST) Cyclobenzaprine HCl 10 mg 06/02/18 14:00 06/28/18 21:32 Flexeril - PO 10 mg TID ASIF Administration Eucalyptus/Menthol/Phenol/Sorbitol 1 each 06/01/18 14:05 Cepastat Lozenge - MM Q4H PRN SORE THROAT Guaifenesin 10 ml 06/01/18 14:05 Robitussin Dm - PO Q6H PRN COUGH Hydroxyzine Pamoate 50 mg 06/01/18 14:06 06/25/18 21:58 Vistaril - PO 50 mg Q4H PRN Administration FOR ITCHING Ibuprofen 400 mg 06/01/18 14:05 06/28/18 21:31 Motrin - PO 400 mg Q6H PRN Administration Pain Level 4-6 Loperamide HCl 4 mg 06/01/18 14:05 Imodium - PO Q6H PRN DIARRHEA Magnesium Citrate 300 ml 06/01/18 14:05 Citroma - PO Q48H PRN CONSTIPATION Magnesium Hydroxide 30 ml 06/01/18 14:05 Milk Of Magnesia - PO DAILY PRN CONSTIPATION Melatonin 5 mg 06/01/18 22:00 06/21/18 21:13 Melatonin PO 5 mg HS PRN Administration INSOMNIA Methyl Salicylate 1 applic 06/15/18 14:00 06/28/18 21:33 Julio C-Stewart - TP Not Given TID ASIF Nicotine 14 mg 06/02/18 10:00 06/28/18 09:44 Nicoderm Patch - TD Not Given DAILY ASIF Nicotine Polacrilex 2 mg 06/01/18 14:05 Nicorette Gum - BUC Q2H PRN NICOTINE REPLACEMENT RX Ondansetron HCl 8 mg 06/03/18 15:10 Zofran Odt - SL Q8H PRN NAUSEA AND/OR VOMITING Multivit/Folic Acid/Iron 1 tab 06/10/18 10:00 06/28/18 09:44 Vitamins (Sjr) - PO 1 tab DAILY ASIF Administration Pseudoephedrine/Triprolidine 1 combo 06/01/18 14:05 06/01/18 21:56 Actifed - PO 1 combo TID PRN Administration NASAL CONGESTION Quetiapine Fumarate 50 mg 06/02/18 22:00 06/28/18 21:32 Seroquel - PO 50 mg HS ASIF Administration Sertraline HCl 50 mg 06/02/18 11:20 06/28/18 09:44 Zoloft - PO 50 mg DAILY ASIF Administration Thiamine HCl 100 mg 06/01/18 22:00 06/28/18 21:32 Vitamin B1 - PO 100 mg HS ASIF Administration Current Side Effect: No Lab tests ordered: Yes Lab tests reviewed: Yes Provider note:: Patient has completed this program today. He has met his treatment goals and will continue to address his issues in outpatient treatment at [facility] at [address] [place], [place] [id number] [address] [place] [address] [address]. Told entry writer that from his participation in this program, he has learned to surround himself with a sober support network in order to maintain abstinence. He responded well to Seroquel 50 mg po HS and Zoloft 50 mg po daily. Scripts for 30 days supply of these medications are electronically transmitted to [facility] at [address] [place] [address]. He is stable for discharge on today Total face to face time:: 35 Mental Status Exam - Mental Status Exam Alert and Oriented to: Time, Place, Person Cognitive Function: Fair Patient Appearance: Well Groomed Mood: Hopeful, Euthymic Affect: Appropriate Patient Behavior: Cooperative Speech Pattern: Clear Voice Loudness: Normal Thought Process: Intact, Goal Oriented Thought Disorder: Not Present Hallucinations: Denies Suicidal Ideation: Denies Homicidal Ideation: Denies Insight/Judgement: Fair Sleep: Fair Appetite: Fair Muscle strength/Tone: Normal Gait/Station: Normal Psychiatric Treatment Plan - Problem List (1) Opioid dependence Current Visit: Yes (2) Cocaine dependence Current Visit: Yes (3) Nicotine dependence Current Visit: No (4) MDD (major depressive disorder), recurrent episode, moderate Current Visit: Yes (5) Substance-induced anxiety disorder Current Visit: Yes (6) Substance-induced sleep disorder Current Visit: Yes (7) History of umbilical hernia repair Current Visit: No Initial treatment plan: Patient is discharged today and referred to [facility] for outpatient treatment
[2018-06-29] MEDS: CYCLOBENZAPRINE HCL 10 MG TABLET (FP) PO SCH (06:45)
[2018-06-29] MEDS: METHYL SALICYLATE/MENTHOL OINT 30 GM TUBE TP SCH (06:45)
[2018-06-29 06:54] VITALS: BP 117/70; PULSE 80; TEMP 97.3
[2018-06-29] MEDS: NICOTINE 14 MG/24 HOURS TOPICAL PATCH TD SCH (09:14)
[2018-06-29] MEDS: SERTRALINE HCL 50 MG TABLET (FP) PO SCH (09:14)
[2018-06-29] MEDS: BACITRACIN 0.9 GM PACKET TP SCH (09:14)
[2018-06-29] MEDS: PRENATAL VITAMINS W/ FOLIC ACID TABLET (FP) PO SCH (09:14)
[2018-06-29] MEDS: BUPRENORPHINE/NALOXONE 8 MG/2 MG FILM PACKET SL SCH (09:14)
[2018-06-29] MEDS: IBUPROFEN 400 MG TABLET (FP) PO PRN (09:16)
--- NOTE | 2018-06-29 10:41 | PN ---
[facility] Progress Note Note: REHAB COMPLETED. ALERT O X 3. NAD. PT REFERRED TO [facility] AND SUBOXONE TREATMENT. RX X 7DAYS SENT TO [facility]. PT TO FOLLOW UP WITH SUBOXONE PROVIDER AT TREATMENT REFERRAL SITE. TREATMENT AND FOLLOW UP WAS EXPLAINED TO PT BY HIS COUNSELOR AND THIS API ARCHITECT. Vital Signs 06/29/18 06:53 Temperature 97.3 F L Pulse Rate 80 Respiratory 18 Rate Blood Pressure 117/70 PLAN:F/U WITH TREATMENT PLAN AFTERCARE
== END 2018-06-29 10:40 | disposition home or self-care (01) | DRG 772 ==
LOC: YASAS 12:27 → Y3W 12:28
PROVIDERS: ADMIT Psychiatry & Neurology Psychiatry; ATTEND Psychiatry & Neurology Psychiatry
PROC: HZ42ZZZ Group Counseling for Substance Abuse Treatment, Cognitive-Behavioral (ICD-10-PCS; principal; 2018-06-01)
DX: F11.23 Opioid dependence with withdrawal (principal); F14.20 Cocaine dependence, uncomplicated; F17.210 Nicotine dependence, cigarettes, uncomplicated; F33.1 Major depressive disorder, recurrent, moderate; F19.280 Other psychoactive substance dependence with psychoactive substance-induced anxiety disorder; F19.282 Other psychoactive substance dependence with psychoactive substance-induced sleep disorder
CPT/HCPCS: J0735